=== PATIENT | female | born 1970 | race Caucasian/White ===

== ENCOUNTER 2016-08-16 23:50 | Emergency (ER) | payer OTHER ==
[~2016-08-16 23:50] MED LIST: ACETAMINOPHEN; ALEVE220 M1; HYDROCODON-ACE1 EACH; PRENATAL MULTIV1 TA1; VOLTAREN50 MG PO; ZOLOFT PO
[2016-08-16] MEDS ORDERED: SEROQUEL XR200 MG (23:56)
[2016-08-16] MEDS ORDERED: NEURONTIN300 MG PO (23:57)
== END 2016-08-17 01:29 | disposition home or self-care (01) ==
LOC: SED 23:50
DX: F15.10 Other stimulant abuse, uncomplicated (principal)
CPT/HCPCS: 84703; 99282